=== PATIENT | female | born 1970 | race Caucasian/White ===

== ENCOUNTER 2020-07-12 18:26 | Inpatient (IN) | payer MEDICARE, MEDICAID ==
[~2020-07-12] VITALS: Ht 167.6 cm; Wt 94.7 kg
[2020-07-12] MEDS ORDERED: SODIUM CHLORIDE 0.9% 500 ML IV ONE (18:45)
[2020-07-12] MEDS ORDERED: HYDROmorphone HCL 2 MG/ML VL IV ONE (18:45)
[2020-07-12] MEDS ORDERED: PROCHLORPERAZINE EDISYLATE 5 MG/ML 2ML VIAL IV ONE (18:45)
[2020-07-12 20:35] LABS: Basophils # (auto) 0 10 ^3/uL (0-0.2); Basophils % (auto) 0.3 % (0.0-2.0); Eosinophils # (auto) 0 10 ^3/uL (0-0.8); Eosinophils % (auto) 0.2 % (0.0-7.0); Hemoglobin 11.2 g/dL (12.2-16.2); Lymphocytes # (auto) 0.7 10 ^3/uL (0.4-5.4); Monocytes # (auto) 0.1 10 ^3/uL (0-1.3); Nucleated Red Blood Cells % 0.2 %
[2020-07-12 20:38] LABS: Hematocrit 33.7 % (36.0-46.0); Lymphocytes % (auto) 13.7 % (10.0-50.0); Mean Corpuscular Hemoglobin 26.1 pg (28.0-32.0); Mean Corpuscular Hgb Conc. 33.2 g/dL (32.0-36.0); Mean Corpuscular Volume 78.5 fL (80.0-100.0); Monocytes % (auto) 2.1 % (0.0-12.0); Neutrophils # (auto) 4.3 10 ^3/uL (1.6-8.6); Neutrophils % (auto) 83.7 % (37.0-80.0); Platelet Count (auto) 395 10^3/uL (140-450); Red Blood Cells 4.29 10^6/uL (4.0-5.20); Red Cell Distribution Width 17.2 % (11.8-14.3); White Blood Cell 5.1 10^3/uL (4.4-10.8)
[2020-07-12 20:48] LABS: Albumin 2.8 g/dL (3.4-5.0); Magnesium 1.9 mg/dL (1.6-2.6); Potassium 3.5 mmol/L (3.5-5.1)
[2020-07-12 20:50] LABS: BUN/Creatinine Ratio 12.9
[2020-07-12 20:54] LABS: Bilirubin, Total 0.5 mg/dL (0.2-1.0); Total Protein 7.9 g/dL (6.4-8.2)
[2020-07-12 21:25] LABS: Urine Bacteria FEW /hpf (None Seen); Urine Blood Negative /uL (Negative); Urine WBC 20 /hpf (0 - 5)
[2020-07-12] MEDS ORDERED: SODIUM CHLORIDE 0.9% 1,000 ML IV ONE (21:30)
[2020-07-12] MEDS ORDERED: ONDA-144 PO (21:43)
[2020-07-12] MEDS ORDERED: PROC10TA2 PO (21:43)
[2020-07-12] MEDS ORDERED: HYDR2TAB58 PO (21:43)
[2020-07-12] MEDS ORDERED: MORP1TAB14 PO (21:43)
[2020-07-12] MEDS ORDERED: DEXTROSE (50%) 50ML SYRG IV PRN (22:00)
[2020-07-12] MEDS ORDERED: ACETAMINOPHEN 325 MG TAB PO PRN (22:00)
[2020-07-12] MEDS ORDERED: cefTRIAXone 1GM/50ML D5W 50 ML IV ONE (22:00)
[2020-07-12] MEDS ORDERED: TEMAZEPAM 15 MG CAP PO PRN (22:00)
[2020-07-12] MEDS ORDERED: HYDROmorphone HCL 2 MG TAB PO PRN (22:00)
[2020-07-12] MEDS: MORPHINE SULF 30 mg ER tab PO SCH (22:54)
[2020-07-12] MEDS: FAMOTIDINE 20 MG TAB PO SCH (22:54)
[2020-07-12] MEDS: SODIUM CHLORIDE 0.9% 1,000 ML IV SCH (22:55)
[2020-07-12] MEDS: InsuLIN REG 1unit/0.01ml Soln (100units/ml) SC SCH (22:56)
[2020-07-12] MEDS: ACCU-CHEK COMFORT CURVE STRIP VI SCH (22:57)
[2020-07-13] VITALS (7 sets, daily range): BP systolic 123–163; BP diastolic 67–87
[2020-07-13] MEDS: PROMETHAZINE HCL 25 MG/ML 1ML IV PRN ×2 (03:54→09:39)
[2020-07-13] MEDS: InsuLIN REG 1unit/0.01ml Soln (100units/ml) SC SCH ×4 (06:22→21:41)
[2020-07-13] MEDS: ACCU-CHEK COMFORT CURVE STRIP VI SCH ×4 (06:22→21:36)
[2020-07-13 07:18] LABS: Hemoglobin 10.1 g/dL (12.2-16.2)
[2020-07-13 07:21] LABS: Hematocrit 30.3 % (36.0-46.0); Mean Corpuscular Hgb Conc. 33.4 g/dL (32.0-36.0); Platelet Count (auto) 315 10^3/uL (140-450); Red Blood Cells 3.88 10^6/uL (4.0-5.20); Red Cell Distribution Width 17.1 % (11.8-14.3); White Blood Cell 2.9 10^3/uL (4.4-10.8)
[2020-07-13 07:29] LABS: Band Neutrophils % (manual) 0; Basophils % (manual) 0 (0.0-2.0); Blast Cells 0; Eosinophils % (manual) 0 (0-7); Metamyelocytes % 0; Promyelocytes % 0; Reactive Lymphocytes 0
[2020-07-13 07:49] LABS: Potassium 3.3 mmol/L (3.5-5.1)
[2020-07-13 07:53] LABS: BUN/Creatinine Ratio 8.3; Calcium 8.9 mg/dL (8.5-10.1)
[2020-07-13 08:41] LABS: Lymphocytes % (manual) 23 (10.0-50.0); Monocytes % (manual) 12 (0-12); Myelocytes % 1
[2020-07-13] MEDS: cefTRIAXone 1GM/50ML D5W 50 ML IV SCH (09:38)
[2020-07-13] MEDS: FAMOTIDINE 20 MG TAB PO SCH ×2 (09:39→21:36)
[2020-07-13] MEDS: SODIUM CHLORIDE 0.9% 1,000 ML IV SCH ×2 (09:39→21:32)
[2020-07-13] MEDS: MORPHINE SULF 30 mg ER tab PO SCH ×2 (09:39→21:36)
[2020-07-13] MEDS ORDERED: POTASSIUM CHL 20 Meq TABLET PO ONE (10:00)
[2020-07-13] MEDS ORDERED: ONDANSETRON HCL 4 MG/2 ML VIAL IV PRN ×2 (14:45→15:00)
[2020-07-13] MEDS: PROCHLORPERAZINE EDISYLATE 5 MG/ML 2ML VIAL IV PRN (17:25)
[2020-07-13] MEDS: HYDROmorphone HCL 2 MG/ML VL IV PRN (17:26)
[2020-07-13 17:36] LABS: INR 1.24 (0.9-1.15)
[2020-07-14 05:00] VITALS: BP 119/72
[2020-07-14] MEDS: HYDROmorphone HCL 2 MG/ML VL IV PRN ×2 (05:46→23:15)
[2020-07-14] MEDS: PROCHLORPERAZINE EDISYLATE 5 MG/ML 2ML VIAL IV PRN ×2 (05:46→23:15)
[2020-07-14] MEDS: ACCU-CHEK COMFORT CURVE STRIP VI SCH ×4 (06:12→22:15)
[2020-07-14] MEDS: InsuLIN REG 1unit/0.01ml Soln (100units/ml) SC SCH ×4 (06:12→22:50)
[2020-07-14 06:36] LABS: Hematocrit 30.1 % (36.0-46.0); Hemoglobin 10.2 g/dL (12.2-16.2); Mean Corpuscular Hemoglobin 26.4 pg (28.0-32.0); Mean Corpuscular Hgb Conc. 33.7 g/dL (32.0-36.0); Mean Corpuscular Volume 78.2 fL (80.0-100.0); Platelet Count (auto) 247 10^3/uL (140-450); Red Blood Cells 3.85 10^6/uL (4.0-5.20); Red Cell Distribution Width 17.4 % (11.8-14.3); White Blood Cell 3.5 10^3/uL (4.4-10.8)
[2020-07-14 06:38] LABS: Magnesium 1.7 mg/dL (1.6-2.6); Potassium 3.1 mmol/L (3.5-5.1)
[2020-07-14 06:51] LABS: Basophils % (manual) 0 (0.0-2.0); Blast Cells 0; Eosinophils % (manual) 0 (0-7); Myelocytes % 0; Promyelocytes % 0; Reactive Lymphocytes 0
[2020-07-14 07:29] LABS: Band Neutrophils % (manual) 2; Lymphocytes % (manual) 34 (10.0-50.0); Metamyelocytes % 3; Monocytes % (manual) 8 (0-12)
[2020-07-14 08:00] VITALS: BP 110/63
[2020-07-14] MEDS ORDERED: LIDOCAINE VISCOUS 2% 15ML UD ONE (08:13)
[2020-07-14] MEDS ORDERED: diphenhdrAMINE HCL 50 MG/1 ML VL ONE (08:14)
[2020-07-14] MEDS: cefTRIAXone 1GM/50ML D5W 50 ML IV SCH (08:45)
[2020-07-14 09:00] VITALS: BP 110/63
[2020-07-14] MEDS: SODIUM CHLORIDE 0.9% 1,000 ML IV SCH ×3 (09:08→23:52)
[2020-07-14] MEDS: MORPHINE SULF 30 mg ER tab PO SCH ×2 (09:13→22:15)
[2020-07-14] MEDS: FAMOTIDINE 20 MG TAB PO SCH (09:13)
[2020-07-14] MEDS: MIDAZOLAM HCL 5 MG/ML-1ML VIAL ONE ×2 (11:59→12:02)
[2020-07-14] MEDS: fentaNYL CITRATE 100 MCG/2 ML VL ONE ×2 (11:59→12:02)
[2020-07-14] MEDS ORDERED: ERGOCALCIFEROL 50,000 UNIT(1.25MG) CAP PO SCH (14:15)
[2020-07-14] MEDS ORDERED: MAGNESIUM SULFATE 1GM/100ML 100 ML IV ONE (14:15)
[2020-07-14] MEDS: POTASSIUM CHL 20MEQ/100ML 100 ML IV SCH ×2 (15:25→17:27)
[2020-07-14 17:00] VITALS: BP 127/72
[2020-07-14 22:00] VITALS: BP 142/86
[2020-07-14] MEDS ORDERED: INSULIN LANTUS (GLARGINE) 1 /0.01ml (100units/ml) SC SCH (22:00)
[2020-07-14] MEDS: PANTOPRAZOLE 40 MG TAB PO SCH (22:15)
[2020-07-15 05:00] VITALS: BP 112/78
[2020-07-15] MEDS: InsuLIN REG 1unit/0.01ml Soln (100units/ml) SC SCH ×2 (06:24→12:02)
[2020-07-15] MEDS: ACCU-CHEK COMFORT CURVE STRIP VI SCH ×2 (06:42→11:30)
[2020-07-15] MEDS: PROCHLORPERAZINE EDISYLATE 5 MG/ML 2ML VIAL IV PRN (06:42)
[2020-07-15] MEDS: HYDROmorphone HCL 2 MG/ML VL IV PRN (06:43)
[2020-07-15 06:51] LABS: Hematocrit 28.7 % (36.0-46.0); Hemoglobin 9.4 g/dL (12.2-16.2)
[2020-07-15 06:58] LABS: Calcium 8.4 mg/dL (8.5-10.1); Magnesium 1.9 mg/dL (1.6-2.6); Potassium 3.8 mmol/L (3.5-5.1)
[2020-07-15 07:01] LABS: BUN/Creatinine Ratio 5.8
[2020-07-15 08:00] VITALS: BP 116/66
[2020-07-15 09:00] VITALS: BP 116/66
[2020-07-15] MEDS: cefTRIAXone 1GM/50ML D5W 50 ML IV SCH (09:21)
[2020-07-15] MEDS: MORPHINE SULF 30 mg ER tab PO SCH (09:22)
[2020-07-15] MEDS: PANTOPRAZOLE 40 MG TAB PO SCH (09:23)
[2020-07-15] MEDS ORDERED: CHOLECALCIFEROL (VITD3) 2,000 UNIT CAP/TAB PO SCH (10:00)
[2020-07-15] MEDS ORDERED: SITA50TA PO ×2 (10:00→11:17)
[2020-07-15] MEDS ORDERED: PANT40TA2 PO (11:15)
[2020-07-15] MEDS ORDERED: INSLANTI SC (11:17)
[2020-07-15] MEDS ORDERED: CHOL1CAP47 PO (11:18)
[2020-07-15 13:00] VITALS: BP 125/68
== END 2020-07-15 15:55 | disposition home or self-care (01) | DRG 392 ==
LOC: ER 18:26 → OVERFLOW 21:59 → WEST WING 07-13 02:28
PROVIDERS: ADMIT Nurse Practitioner; ATTEND Internal Medicine
PROC: 0DB68ZX Excision of Stomach, Via Natural or Artificial Opening Endoscopic, Diagnostic (ICD-10-PCS; principal; 2020-07-14 12:03)
DX: K29.70 Gastritis, unspecified, without bleeding (principal); E86.0 Dehydration; E11.65 Type 2 diabetes mellitus with hyperglycemia; E55.9 Vitamin D deficiency, unspecified; E88.09 Other disorders of plasma-protein metabolism, not elsewhere classified; D63.8 Anemia in other chronic diseases classified elsewhere; C50.919 Malignant neoplasm of unspecified site of unspecified female breast; E87.6 Hypokalemia; G89.4 Chronic pain syndrome; T45.1X5A Adverse effect of antineoplastic and immunosuppressive drugs, initial encounter; M54.9 Dorsalgia, unspecified; Z20.822 Contact with and (suspected) exposure to COVID-19; Z80.9 Family history of malignant neoplasm, unspecified; Z85.3 Personal history of malignant neoplasm of breast; Z92.21 Personal history of antineoplastic chemotherapy; Z68.32 Body mass index [BMI] 32.0-32.9, adult; Z90.49 Acquired absence of other specified parts of digestive tract; Y92.89 Other specified places as the place of occurrence of the external cause
CPT/HCPCS: 36415; 43239; 78264; 80048; 80053; 80061; 81001; 82306; 82962; 83036; 83735; 84132; 84443; 84702; 85007; 85014; 85018; 85025; 85027; 85610; 86850; 86900; 86901; 87086; 87426; 93005; 96361; 96365; 96375; 97163; G0378; J0696; J1642; J1815; J2250; J2405; J3480

== ENCOUNTER 2020-09-06 20:51 | Emergency (ER) | payer MEDICARE, MEDICAID ==
[~2020-09-06] VITALS: Ht 167.6 cm; Wt 91.6 kg
[~2020-09-06 20:51] MED LIST: CHOL1CAP47 PO; HYDR2TAB58 PO; INSLANTI SC; MORP1TAB14 PO; ONDA-144 PO; PANT40TA2 PO; PROC10TA2 PO; SITA50TA PO
[2020-09-06 21:08] VITALS: BP 132/76
== END 2020-09-07 02:28 | disposition left against medical advice (07) ==
LOC: ER 20:54
DX: R11.2 Nausea with vomiting, unspecified (principal); R10.9 Unspecified abdominal pain; Z53.21 Procedure and treatment not carried out due to patient leaving prior to being seen by health care provider